=== PATIENT | female | born 1965 | race Caucasian/White ===

== ENCOUNTER → 2017-11-14 | Outpatient (CLI) | payer OTHER ==
--- NOTE | 2017-11-14 15:08 | MAMMOGRAPHY REPORT ---
UNILATERAL LEFT DIGITAL DIAGNOSTIC MAMMOGRAM TOMOSYNTHESIS AND TARGETED LEFT ULTRASOUND: 11/14/2017 CLINICAL HISTORY: Callback from screening mammogram for left breast asymmetry. TECHNIQUE: Breast tomosynthesis in addition to standard 2D mammography was performed. Spot compress ion left CC and MLO 2-D and tomosynthesis images were obtained. COMPARISON: Comparison is made to exam dated: 10/31/2017 mammogram - [facility]. BREAST COMPOSITION: The tissue of the left breast is almost entirely fatty. FINDINGS: Spot compression views demonstrate a low density nodular 6 mm asymmetry seen within the lef t lateral posterior breast on the cc view only, not evident on the MLO views. The asymmetry is somew hat reniform in shape on the tomosynthesis images suggesting that this may represent a normal intrama mmary lymph node. No associated architectural distortion is noted on the additional images. Targeted ultrasound was performed of the left lateral breast in the region of the mammographic asymme try. Sonographically normal tissue is seen in this region, without evidence of mass or other suspici ous sonographic abnormality. IMPRESSION: ACR-BI-RADS CATEGORY 3: PROBABLY BENIGN, TARGETED ULTRASOUND ACR-BI-RADS CATEGORY 3: PRO BABLY BENIGN A low-density 6 mm asymmetry is seen within the left lateral breast on the additional views, without corresponding suspicious sonographic abnormality evident. The finding is probably benign and may rep resent a normal intramammary lymph node or possibly normal fibroglandular tissue. Recommend follow-u p diagnostic tomosynthesis mammograms and possible ultrasound of the left breast in 6 months to confi rm stability, given no priors for comparison. The patient has been verbally notified of the results. Approximately 10% of breast cancers are not detected with mammography. A negative mammographic report should not delay biopsy if a clinically suggestive mass is present. Liset Julien M.D. ah/:11/14/2017 08:25:08 Photo Lab Manager: Lyly COLON(R)(M), [facility] letter sent: Follow Up Recommended 3 BI-RADS Code: ACR-BI-RADS Category 3: Probably Benign Ultrasound BI-RADS: ACR-BI-RADS Category 3: Pr obably Benign
== END | disposition home or self-care (01) ==
LOC: C.MAMM 07:56
PROVIDERS: ATTEND Student in an Organized Health Care Education/Training Program
DX: N64.89 Other specified disorders of breast (principal)